=== PATIENT | male | born 1945 | race Two or more races ===

== ENCOUNTER 2023-10-21 20:16 | Inpatient (IN) | payer OTHER, MEDICAID ==
[~2023-10-21] VITALS: Ht 162.6 cm; Wt 61.1 kg
[~2023-10-21 20:16] MED LIST: LISI10TA34 PO; SIMV10TA20 PO
[2023-10-21 21:09] LABS: Basophils # (auto) 0 10 ^3/uL (0-0.2); Basophils % (auto) 0.5 % (0.0-2.0); Eosinophils # (auto) 0.1 10 ^3/uL (0-0.8); Eosinophils % (auto) 2.1 % (0.0-7.0); Hematocrit 36.9 % (41.0-53.0); Hemoglobin 12.6 g/dL (13.5-17.5); Lymphocytes # (auto) 2.9 10 ^3/uL (0.4-5.4); Lymphocytes % (auto) 46.4 % (10.0-50.0); Mean Corpuscular Hemoglobin 33.2 pg (28.0-32.0); Mean Corpuscular Hgb Conc. 34.2 g/dL (32.0-36.0); Mean Corpuscular Volume 97.1 fL (80.0-100.0); Monocytes # (auto) 0.5 10 ^3/uL (0-1.3); Monocytes % (auto) 7.7 % (0.0-12.0); Neutrophils # (auto) 2.7 10 ^3/uL (1.6-8.6); Neutrophils % (auto) 43.3 % (37.0-80.0); Nucleated Red Blood Cells % 0.1 %; Red Blood Cells 3.81 10^6/uL (4.5-5.90); White Blood Cell 6.2 10^3/uL (4.4-10.8)
[2023-10-21 21:25] LABS: INR 1.02 (0.9-1.15); Partial Thromboplastin Time 22.2 SEC (24.5-34.5); Prothrombin Time 10.8 sec (9.3-11.8)
[2023-10-21 21:31] LABS: Alanine Aminotransferase 18 U/L (7-40); Alkaline Phosphatase 78 U/L (46-116); Anion Gap 8 (5-15); Aspartate Aminotransferase 14 U/L (13-40); BUN/Creatinine Ratio 16.8 (10.0-20.0); Blood Urea Nitrogen 19 mg/dL (9-23); Calcium 9.2 mg/dL (8.5-10.1); Carbon Dioxide 25 mmol/L (20-30); Chloride 108 mmol/L (98-107); Glucose 155 mg/dL (74-106); Potassium 3.7 mmol/L (3.5-5.1); Sodium 141 mmol/L (136-145)
[2023-10-21 21:32] LABS: Albumin 4.1 g/dL (3.2-4.8); Bilirubin, Total 0.5 mg/dL (0.2-1.0); Total Protein 6.7 g/dL (5.7-8.2)
[2023-10-22] MEDS: SODIUM CHLORIDE 0.9% 1,000 ML IV ONE (00:09)
[2023-10-22] MEDS: levoFLOXacin 500MG 100 ML IV ONE (00:10)
[2023-10-22] MEDS: ONDANSETRON HCL 4 MG/2 ML VIAL IV ONE (00:10)
[2023-10-22 00:56] LABS: Urine Bacteria None Seen /hpf (None Seen)
[2023-10-22 01:23] LABS: Urine Blood Negative /uL (Negative); Urine Budding Yeast FEW /hpf (None Seen); Urine Clarity Turbid (Clear); Urine Color Yellow (Yellow); Urine Hyaline Cast FEW /lpf (0 - 2); Urine Mucus FEW (None Seen); Urine Protein, UAD 1+ (Negative); Urine Specific Gravity 1.029 (1.001-1.035); Urine Urobilinogen 2 mg/dL (Negative); Urine WBC 8 /hpf (0 - 3)
[2023-10-22] MEDS ORDERED: ACETAMINOPHEN 325 MG TAB PO PRN (05:00)
[2023-10-22] MEDS ORDERED: HYDROcodone-ACET 5/325MG TAB PO PRN (05:00)
[2023-10-22] MEDS ORDERED: DEXTROSE (50%) 50ML SYRG IV PRN (05:00)
[2023-10-22] MEDS ORDERED: ONDANSETRON HCL 4 MG/2 ML VIAL IV PRN (05:00)
[2023-10-22] MEDS: InsuLIN REG 1unit/0.01ml Soln (100units/ml) SC SCH (07:00)
[2023-10-22] MEDS: ACCU-CHEK COMFORT CURVE STRIP VI SCH (07:12)
[2023-10-22 08:14] VITALS: BP 139/64; PULSE 63; RESP 17; TEMP 97.8; O2SAT 97
[2023-10-22 08:41] VITALS: BP 139/64; PULSE 63; RESP 17; TEMP 97.8; O2SAT 97
[2023-10-22] MEDS: cefTRIAXone 1GM/50ML D5W 50 ML IV SCH (08:42)
[2023-10-22] MEDS: ASPirin 81 mg TAB PO SCH (08:52)
[2023-10-22] MEDS: MEMANTINE HCL 5 MG TAB PO SCH (08:52)
[2023-10-22] MEDS: LISINOPRIL 5 MG TAB PO SCH (08:53)
[2023-10-22] MEDS: ENOXAPARIN SOD 40 MG/0.4 ML SYRINGE SC SCH (08:53)
[2023-10-22 12:53] VITALS: BP 116/60; PULSE 63; RESP 17; TEMP 97.8; O2SAT 96
[2023-10-22 16:15] VITALS: BP 147/66; PULSE 60; RESP 17; TEMP 97.7; O2SAT 97
[2023-10-22] MEDS: TAMSULOSIN HYDROCHLORIDE 0.4 MG CAP PO SCH (17:27)
[2023-10-22 21:00] VITALS: BP 106/63; PULSE 67; RESP 14; TEMP 98.5; O2SAT 97
[2023-10-22] MEDS: DONEPEZIL HYDROCHLORIDE 5 MG TAB PO SCH (21:59)
[2023-10-22] MEDS: ATORVASTATIN 20 MG TAB PO SCH (22:00)
[2023-10-22] MEDS: NYSTATIN TOPICAL CREAM 15GM TOP SCH (22:13)
[2023-10-23 01:00] VITALS: BP 103/58; PULSE 64; RESP 16; TEMP 98.1; O2SAT 96
[2023-10-23 05:00] VITALS: BP 105/61; PULSE 63; RESP 14; TEMP 98; O2SAT 98
[2023-10-23 07:36] LABS: Basophils # (auto) 0 10 ^3/uL (0-0.2); Eosinophils # (auto) 0.2 10 ^3/uL (0-0.8); Eosinophils % (auto) 3.3 % (0.0-7.0); Hematocrit 36.9 % (41.0-53.0); Hemoglobin 12.7 g/dL (13.5-17.5); Lymphocytes # (auto) 2.1 10 ^3/uL (0.4-5.4); Lymphocytes % (auto) 43.5 % (10.0-50.0); Mean Corpuscular Hemoglobin 33.5 pg (28.0-32.0); Mean Corpuscular Hgb Conc. 34.5 g/dL (32.0-36.0); Mean Corpuscular Volume 96.9 fL (80.0-100.0); Monocytes # (auto) 0.5 10 ^3/uL (0-1.3); Monocytes % (auto) 9.4 % (0.0-12.0); Neutrophils # (auto) 2.1 10 ^3/uL (1.6-8.6); Neutrophils % (auto) 42.8 % (37.0-80.0); Nucleated Red Blood Cells % 0.1 %; Red Blood Cells 3.81 10^6/uL (4.5-5.90); White Blood Cell 4.8 10^3/uL (4.4-10.8)
[2023-10-23 07:43] LABS: Chloride 106 mmol/L (98-107); Potassium 3.7 mmol/L (3.5-5.1); Sodium 140 mmol/L (136-145)
[2023-10-23 07:44] LABS: Anion Gap 8 (5-15); Calcium 9.1 mg/dL (8.5-10.1); Carbon Dioxide 26 mmol/L (20-30)
[2023-10-23 07:49] LABS: BUN/Creatinine Ratio 18.7 (10.0-20.0); Blood Urea Nitrogen 17 mg/dL (9-23); Glucose 119 mg/dL (74-106)
[2023-10-23 08:06] LABS: PSA Free 0.41 ng/mL; Prostate Specific Antigen 1.1 ng/mL (0.0-4.0)
[2023-10-23 09:00] VITALS: BP 105/62; PULSE 64; RESP 14; TEMP 97.7; O2SAT 96
[2023-10-23] MEDS: FLUCONAZOLE 200MG/100ML 100 ML IV ONE (11:08)
[2023-10-23 13:00] VITALS: BP 133/71; PULSE 54; RESP 14; TEMP 97.7; O2SAT 97
[2023-10-23] MEDS ORDERED: FLUC100T PO (15:13)
[2023-10-23 16:55] VITALS: BP 123/80; PULSE 61; RESP 14; TEMP 97.8; O2SAT 99
== END 2023-10-23 18:29 | disposition home or self-care (01) | DRG 728 ==
LOC: ER 20:16 → OVERFLOW 10-22 05:01 → WEST WING 10-22 08:33
PROVIDERS: ADMIT Nurse Practitioner; ATTEND Nurse Practitioner Acute Care
DX: B37.41 Candidal cystitis and urethritis (principal); N40.0 Benign prostatic hyperplasia without lower urinary tract symptoms; E11.9 Type 2 diabetes mellitus without complications; I10 Essential (primary) hypertension; F03.90 Unspecified dementia, unspecified severity, without behavioral disturbance, psychotic disturbance, mood disturbance, and anxiety; E78.5 Hyperlipidemia, unspecified; Z79.4 Long term (current) use of insulin; Z79.899 Other long term (current) drug therapy
CPT/HCPCS: 36415; 70450; 71045; 74176; 80048; 80053; 81001; 82962; 83880; 84154; 84484; 85025; 85610; 85730; 87086; 87088; 93005; 93306; 96365; 96375; 99291; G0378; J1450; J1815; J1956; J2405

== ENCOUNTER 2024-06-11 06:53 | Day surgery (SDC) | payer OTHER, MEDICAID ==
[2024-06-08 10:51] LABS: Urine Bacteria None Seen /hpf (None Seen)
[2024-06-08 10:59] LABS: Basophils # (auto) 0 10 ^3/uL (0-0.2); Basophils % (auto) 0.7 % (0.0-2.0); Eosinophils # (auto) 0.1 10 ^3/uL (0-0.8); Hematocrit 39.5 % (41.0-53.0); Hemoglobin 13.7 g/dL (13.5-17.5); Mean Corpuscular Hgb Conc. 34.7 g/dL (32.0-36.0); Monocytes # (auto) 0.4 10 ^3/uL (0-1.3); Monocytes % (auto) 7.3 % (0.0-12.0); Neutrophils # (auto) 2.7 10 ^3/uL (1.6-8.6); Nucleated Red Blood Cells % 0.2 %; Platelet Count (auto) 206 10^3/uL (140-450); Red Blood Cells 4.03 10^6/uL (4.5-5.90); Red Cell Distribution Width 13.3 % (11.8-14.3); White Blood Cell 5.2 10^3/uL (4.4-10.8)
[2024-06-08 11:13] LABS: INR 1.03 (0.9-1.15); Partial Thromboplastin Time 24.8 SEC (24.5-34.5); Prothrombin Time 10.9 sec (9.3-11.8)
[2024-06-08 11:16] LABS: Urine Blood Negative /uL (Negative); Urine Clarity Clear (Clear); Urine Color Light-Yellow (Yellow); Urine Protein, UAD Negative (Negative); Urine Specific Gravity 1.022 (1.001-1.035); Urine Squamous Epithelial Cell FEW /hpf (<5); Urine Urobilinogen Normal (Negative); Urine WBC <1 /hpf (0 - 3)
[2024-06-08 11:41] LABS: Alanine Aminotransferase 18 U/L (7-40); Alkaline Phosphatase 78 U/L (46-116); Anion Gap 6 (5-15); BUN/Creatinine Ratio 16.7 (10.0-20.0); Blood Urea Nitrogen 16 mg/dL (9-23); Calcium 9.9 mg/dL (8.7-10.4); Carbon Dioxide 28 mmol/L (20-31); Chloride 106 mmol/L (98-107); Potassium 4.5 mmol/L (3.5-5.1); Sodium 140 mmol/L (136-145)
[2024-06-08 11:43] LABS: Albumin 4.5 g/dL (3.2-4.8); Aspartate Aminotransferase 15 U/L (13-40); Bilirubin, Total 0.6 mg/dL (0.2-1.0)
[2024-06-08 12:07] LABS: Glucose 126 mg/dL (74-106)
[~2024-06-11] VITALS: Ht 152.4 cm; Wt 64.4 kg
[~2024-06-11 06:53] MED LIST changes: +ASCO500T11 PO; +ASPI-543 PO; +CHOL100029 PO; +DIVA500T13 PO; +DONETAB5 PO; +DOXA4TAB83 PO; +FINA5TAB4 PO; +FLUC100T PO; +IBUP-1456 PO; +INSU1INJ19 SC; +MECL12.586 PO; +MEMA28CA15 PO; +METF-371 PO; +OMEP20TA PO; +SITA100T7 PO; +TAMS0.4C39 PO
[2024-06-11] MEDS ORDERED: PROPOFOL 10 MG/ML 20 ML IV ONE ×2 (08:06→08:16)
[2024-06-11] MEDS ORDERED: LIDOCAINE 2% (LOCAL ANESTH.) PF 5ml SDV ONE (08:06)
[2024-06-11] MEDS ORDERED: ePHEDrine SULFATE 50 MG/ML AMP ONE (08:19)
[2024-06-11 08:28] VITALS: PULSE 72; RESP 16; TEMP 97.4
--- NOTE | 2024-06-11 08:28 | DVHHP2 ---
GI H&P Pre-Op Assessment Date: 06/11/24 Chief complaint: colon cancer screening, heartburn HPI: per clinic note Past medical history: per clinic note Past surgical history: per clinic note Family history: per clinic note Physical exam: General: NAD, AAOX3 HEENT: PERRL, no scleral icterus, normal hearing, gums without lesions or bleeding, oropharynx clear without erythema or exudate. Neck: Supple without enlargement of the thyroid, or lymphadenopathy. Chest: Normal size and shape, no tenderness, lung leonard clear to auscultation and percussion, nonlabored breathing. Heart: RRR, no murmur Abdomen: non-distended, no tenderness to palpation, +BS, no hepatosplenomegaly Extremities: no edema Neurological: CN II-XII intact, sensation intact in all extremities, 5+ strength in all extremities Skin: No rashes, No jaundice Assessment: - colon cancer screening - heartburn Plan: - EGD - Colonoscopy - Risks (bleeding, infection, perforation, reaction to sedation medications and cardiopulmonary arrest) and benefit of the procedure were explained to patient. Patient agrees to undergo the procedure. ENRICO NEWMAN MD Jun 11, 2024 08:28
--- NOTE | 2024-06-11 08:30 | DVHOP2 ---
Operative Report DATE OF OPERATION: 06/11/24 PROCEDURE: Upper Endoscopy. PREOPERATIVE INDICATION: The patient is a 79 -year-old male undergoing endoscopy for heartburn POSTOPERATIVE DIAGNOSES: 1. Normal EGD PROCEDURE PERFORMED BY: Rufus Nair SCOPE: Olympus videoendoscope. ASA CLASS: 3 PREOPERATIVE MEDICATIONS: MAC with Bryant BLAIR PROCEDURE IN DETAIL: After obtaining an informed consent, the patient was placed on left lateral decubitus position. The patient was then sedated with the above medications. A bite block was placed between his teeth. The endoscope was then passed through the oropharynx, into the esophagus, and through the stomach and pylorus up to the second and third part of the duodenum. The duodenum and stomach were normal in appearance. The GEJ was normal in appearance at 35 cm. The esophagus was normal in appearance. The endoscope was then withdrawn. The patient tolerated the procedure well without difficulty. COMPLICATIONS : None SPECIMENS: None DISPOSITION: D/C to home PLAN: 1. Continue with PPI RUFUS NAIR MD Jun 11, 2024 08:30
--- NOTE | 2024-06-11 08:32 | DVHOP2 ---
Operative Report DATE OF OPERATION: 06/11/24 PROCEDURE: Colonoscopy. PREOPERATIVE INDICATION: The patient is a 79 -year-old male undergoing colonoscopy for colon cancer screening. POSTOPERATIVE DIAGNOSES: 1. 2 mm polyp in the left colon removed with biopsy forceps. 2. Small internal hemorrhoids. PROCEDURE PERFORMED BY: Rufus Nair M.D. SCOPE: Olympus videocolonoscope. ASA CLASS: 3 PREOPERATIVE MEDICATIONS: MAC with Bryant OIM CONSULTANT PROCEDURE IN DETAIL: After obtaining an informed consent, the patient was placed on left lateral decubitus position. He was then sedated with the above medications. A rectal examination was performed that was normal. The colonoscope was then passed through the anus into the rectosigmoid and through the descending, transverse, and ascending colon up to the cecum with visualization of the appendiceal orifice, base of the cecum and the ileocecal valve. A 2 mm polyp in the left colon removed with biopsy forceps. There were small internal hemorrhoids. The colonoscope was then withdrawn. The patient tolerated the procedure well without difficulty. WITHDRAWAL TIME: 7 minutes QUALITY OF THE PREP: [place] Bowel Prep score: 7 COMPLICATIONS : None SPECIMENS: colon polyp DISPOSITION: D/C to home PLAN: 1. Repeat colonoscopy base on biopsy result RUFUS NAIR MD Jun 11, 2024 08:32
--- NOTE | 2024-06-11 08:33 | DVHDS2 ---
Physician Discharge Progress N Final Diagnosis: normal EGD colon polyp, internal hemorrhoids Operations or Procedures: Operations or Procedures EGD colonoscopy with biopsy polypectomy Condition on Discharge: Good Disposition: Home Discharge Instructions: Diet: Regular Activity: No Restrictions, As Tolerated Medications: resume with previous home medications Follow Up Care: Discharge Statement: "Patient was advised to return to the ER or call 911 if any headaches, dizziness, shortness of breath, chest pain, abdominal pain, bleeding, fevers, or worsening of medical condition. Patient was counseled about treatment plan, medications, possible side effects, patientverbalized understanding. All questions were answered to the best of my ability. This discharge took greater then 30 minutes in planning, reviewing documentation, counseling the patient, and discussing with other team members." ENRICO NEWMAN MD Jun 11, 2024 08:33
[2024-06-11 08:55] VITALS: BP 113/56; PULSE 65; RESP 11; O2SAT 98
== END 2024-06-11 09:15 | disposition home or self-care (01) ==
LOC: GI 06:53
PROVIDERS: ATTEND Internal Medicine Gastroenterology
DX: Z12.11 Encounter for screening for malignant neoplasm of colon (principal); D12.6 Benign neoplasm of colon, unspecified; K64.8 Other hemorrhoids; R12 Heartburn; K21.9 Gastro-esophageal reflux disease without esophagitis; I10 Essential (primary) hypertension; E11.9 Type 2 diabetes mellitus without complications; E78.5 Hyperlipidemia, unspecified; G30.9 Alzheimer's disease, unspecified; F02.80 Dementia in other diseases classified elsewhere, unspecified severity, without behavioral disturbance, psychotic disturbance, mood disturbance, and anxiety; M19.90 Unspecified osteoarthritis, unspecified site; E66.3 Overweight; Z68.27 Body mass index [BMI] 27.0-27.9, adult; Z79.4 Long term (current) use of insulin; Z79.82 Long term (current) use of aspirin; Z79.899 Other long term (current) drug therapy; Z90.49 Acquired absence of other specified parts of digestive tract; Z98.890 Other specified postprocedural states; Z87.891 Personal history of nicotine dependence; Z80.0 Family history of malignant neoplasm of digestive organs
CPT/HCPCS: 36415; 43235; 45380; 80053; 81001; 82962; 85025; 85610; 85730; 88305; J2003; J2704; J7030